=== PATIENT | male | born 1970 | race Caucasian/White ===

== ENCOUNTER 2017-03-30 17:30 | Emergency (ER) | payer OTHER ==
[~2017-03-30] VITALS: Ht 182.9 cm; Wt 120.0 kg
[~2017-03-30 17:30] MED LIST: ECOT81TA2 PO; FEXO60TA PO; MELO15TA2 PO
[2017-03-30 17:36] VITALS: BP 159/93; PULSE 79; RESP 15; TEMP 97.9; O2SAT 98
[2017-03-30] MEDS ORDERED: TETANUS/DIPHTHERIA TOXOID ADULT 0.5 ML VIAL IM ONE (17:45)
[2017-03-30] MEDS ORDERED: SULFAMETHOXAZOLE-TRIMETHOPRIM DS 800-160 MG TAB PO ONE (17:45)
[2017-03-30] MEDS ORDERED: cholesterol pill PO (17:52)
[2017-03-30] MEDS ORDERED: ASPI81CH CHEW (17:52)
--- NOTE | 2017-03-30 18:00 | PD ---
HPI Chief Complaint: Laceration/Skin Injury Time Seen by Provider: 17:40 Travel History International Travel<30 days: No Contact w/Intl Traveler<30days: No Traveled to known affect area: No History of Present Illness HPI 46-year-old male that presents to the ED for evaluation of laceration to his left second digit. Per patient he was putting shutters when he was using a drill bit to drill a hole he accidentally drill on his left second digit. Per patient he didn't went through and through but did went deep enough. He was able to get the piece of it out. He is able to move the finger fully. Per patient his pain is 7 out of 10. Denies any numbness, tilling, weakness. For the most part the laceration itself is puncture like a less than a quarter centimeter. Patient is concerned for internal injuries. No allergies to medication. He is unsure of his last tetanus booster. PFSH Past Medical History Arthritis: No Autoimmune Disease: No Blood Disorders: No Heart Rhythm Problems: Yes Cancer: No Cardiovascular Problems: Yes Diminished Hearing: No Endocrine: No Gastrointestinal Disorders: No Glaucoma: No Genitourinary: No Immune Disorder: No Musculoskeletal: Yes (chronic back pain) Neurologic: No Psychiatric: No Reproductive: No Respiratory: Yes (sleep apnea) Sleep Apnea: Yes Tetanus Vaccination: Unknown Past Surgical History AICD: No Cardiac Surgery: Yes (PACEMAKER) Eye Surgery: Yes (LASER SURGERY BILATERAL ) Joint Replacement: No Neurologic Surgery: Yes (LUMBAR LAMI 2006/SPINAL FUSION) Pacemaker: Yes (JUL 25 2013) Social History Alcohol Use: No Tobacco Use: No Substance Use: No Allergies-Medications (Allergen,Severity, Reaction): Coded Allergies: No Known Allergies (Verified , 03/30/17) Reported Meds & Prescriptions Reported Meds & Active Scripts Active Diclofenac Sodium DR (Diclofenac Sodium) 75 Mg Tabdr 75 Mg PO BID PRN Bactrim DS (Sulfamethoxazole-Trimethoprim) 800-160 Mg Tab 1 Tab PO BID 7 Days Reported [cholesterol pill] 1 Tab PO HS Aspirin 81 Mg Chew 81 Mg CHEW DAILY Review of Systems Except as stated in HPI: all other systems reviewed are Neg Physical Exam Narrative GENERAL: SKIN: Warm and dry. HEAD: Atraumatic. Normocephalic. EYES: Pupils equal and round. No scleral icterus. No injection or drainage. ENT: No nasal bleeding or discharge. Mucous membranes pink and moist. NECK: Trachea midline. No JVD. CARDIOVASCULAR: Regular rate and rhythm. RESPIRATORY: No accessory muscle use. Clear to auscultation. Breath sounds equal bilaterally. GASTROINTESTINAL: Abdomen soft, non-tender, nondistended. Hepatic and splenic margins not palpable. MUSCULOSKELETAL: Extremities without clubbing, cyanosis, or edema. No obvious deformities. Motion of all fingers of the left hand. Patient has a puncture wound to the right second digit of the left hand. On the medial aspect. About less than 0.25 cm in diameter with ragged edges. Very well approximated. He does appear to be somewhat deep and there is some signs of swelling. No obvious sign of tendon, vessel, nerve damage. Patient able to move the finger fully and there is no sensation of foreign body. Good capillary refill of the entire digit. NEUROLOGICAL: Awake and alert. No obvious cranial nerve deficits. Motor grossly within normal limits. Five out of 5 muscle strength in the arms and legs. Normal speech. PSYCHIATRIC: Appropriate mood and affect; insight and judgment normal. Data Data Last Documented VS Vital Signs Date Time Temp Pulse Resp B/P (MAP) Pulse Ox O2 Delivery O2 Flow Rate FiO2 03/30/17 17:36 97.9 79 15 159/93 (115) 98 Orders Orders Wound Care (03/30/17 17:42) Tetanus/Diphtheria Tox Adult (Tetanus/Di (03/30/17 17:45) Splint Or Brace Apply/Monitor (03/30/17 17:42) Sulfamet-Trimeth Ds 800-160 Mg (Bactrim (03/30/17 17:45) Finger ([id number]) (03/30/17 17:54) MDM Medical Decision Making Medical Screen Exam Complete: Yes Emergency Medical Condition: Yes Medical Record Reviewed: Yes Interpretation(s) xray of left finger negative for bony injury or foreign body Differential Diagnosis Puncture wound versus laceration versus finger injury Narrative Course 46-year-old male that presents to the ED for evaluation of injury to the left second digit. Patient was properly examined and was found to have signs and symptoms consistent appears to be a puncture wound. X-ray will be done to rule out any sign of bony injury although this appears to be as likely. Also to rule out foreign body. Patient was given tetanus booster. X-ray was negative for acute bony injury or foreign body. Patient was reassured. In regards to the laceration itself I recommend to let it heal by secondary intent. Patient agrees with this decision. Patient was told that he will likely have a scar but he should heal well. Patient will be given prophylactic antibiotics. Patient was given pain medication and given a splint as well as wound care. Patient is with plan. Follow with PCP. See ED worsening symptoms. Diagnosis Primary Impression: Puncture wound of finger of left hand Qualified Codes: S61.239A - Puncture wound without foreign body of unspecified finger without damage to nail, initial encounter Patient Instructions: General Instructions Additional Instructions: Wound care daily with soap and water. You can apply bandaid if needed. Neosporyn or OTC antibiotic ointment to area as needed twice a day for at least 2 weeks to help with scarring and prevent infection. Meoderma OTC for scarring if needed. Avoid sun exposure for 2 months as the sun could make scar darker and more noticeable. See ED if worst. Take med as prescribed. Keep splint for the next few days. IF better you can take it off in 3 days. Med/Other Pt SpecificInfo: Prescription(s) given Scripts Diclofenac Sodium DR (Diclofenac Sodium DR) 75 Mg Tabdr 75 MG PO BID Y for PAIN SCALE 1 TO 10, #20 TAB 0 Refills Prov: Randy Quick MD 03/30/17 Sulfamethoxazole-Trimethoprim (Bactrim DS) 800-160 Mg Tab 1 TAB PO BID for Infection for 7 Days, TAB 0 Refills Prov: Randy Quick MD 03/30/17 Disposition: 01 DISCHARGE HOME Condition: Stable Hu Godwin Mar 30, 2017 18:00
[2017-03-30] MEDS ORDERED: BACT800T5 PO (18:01)
[2017-03-30] MEDS ORDERED: DICL75TA PO (18:01)
--- NOTE | 2017-03-30 18:50 | RADRPT ---
EXAM DATE/TIME: 03/30/2017 17:53 [facility] COMPARISON: No previous studies available for comparison. INDICATIONS : Left hand, third digit pain post screw accident. MEDICAL HISTORY : None. SURGICAL HISTORY : None. ENCOUNTER: Initial ACUITY: 1 day PAIN SCORE: 7/10 LOCATION: Left upper extremity FINDINGS: Examination of the third digit of the left hand demonstrates laceration proximal third finger. No fra cture. No radiopaque foreign body. CONCLUSION: 1. Small laceration third finger. No acute bony abnormalities or radiopaque foreign body. Jose Ott MD on March 30, 2017 at 18:48 Board Certified Radiologist. This report was verified electronically.
== END 2017-03-30 18:54 | disposition home or self-care (01) ==
LOC: PHEFT 17:30
DX: S61.231A Puncture wound without foreign body of left index finger without damage to nail, initial encounter (principal); W29.8XXA Contact with other powered hand tools and household machinery, initial encounter; Y93.H9 Activity, other involving exterior property and land maintenance, building and construction; Y92.098 Other place in other non-institutional residence as the place of occurrence of the external cause; Z23 Encounter for immunization
CPT/HCPCS: 29130; 73140; 90471; 90714

== ENCOUNTER 2017-07-17 16:17 | Emergency (ER) | payer OTHER ==
[~2017-07-17 16:17] MED LIST changes: +ASPI-516 CHEW; +BACT800T5 PO; +DICL75TA PO; -ECOT81TA2 PO; -FEXO60TA PO; -MELO15TA2 PO; +cholesterol pill PO
[2017-07-17 16:19] VITALS: BP 180/97; PULSE 84; RESP 12; TEMP 99; O2SAT 95
[2017-07-17] MEDS ORDERED: SODIUM CHLOR 0.9% 1000 ML INJ 1,000 ML IV SCH (16:54)
[2017-07-17 17:00] VITALS: O2SAT 99
[2017-07-17] MEDS ORDERED: KETOROLAC TROMETHAMINE 30 MG/ML (IVP) VIAL IV PUSH ONE (17:00)
[2017-07-17] MEDS ORDERED: SODIUM CHLORIDE 0.9% FLUSH 10 ML FLUSH IV FLUSH PRN (17:00)
[2017-07-17] MEDS ORDERED: ONDANSETRON HCL 4 MG/2 ML VIAL IVP ONE (17:00)
[2017-07-17 17:48] LABS: BASOPHIL # 0.1 TH/MM3 (0-0.2); BASOPHIL % 0.7 % (0.0-2.0); EOSINOPHIL # 0.3 TH/MM3 (0-0.4); HEMATOCRIT 43.6 % (39.0-51.0); HEMOGLOBIN 14.7 GM/DL (13.0-17.0); LYMPH % 7.7 % (9.0-44.0); MEAN CELL VOLUME 90.4 FL (80.0-100.0); MEAN CORPUSCULAR HEMOGLOBIN 30.4 PG (27.0-34.0); MEAN CORPUSCULAR HGB CONC 33.7 % (32.0-36.0); MEAN PLATELET VOLUME 8.7 FL (7.0-11.0); MONO % 9.3 % (0.0-8.0); MONOCYTE # 1.2 TH/MM3 (0-0.9); NEUT % 80.3 % (16.0-70.0); PLATELET COUNT 230 TH/MM3 (150-450); RED BLOOD COUNT 4.82 MIL/MM3 (4.50-5.90); RED CELL DISTRIBUTION WIDTH 13.5 % (11.6-17.2); WHITE BLOOD COUNT 12.4 TH/MM3 (4.0-11.0)
[2017-07-17] MEDS ORDERED: LIPI20TA PO (17:50)
[2017-07-17 17:57] LABS: INTERNATIONAL NORMALIZED RATIO 1.1 RATIO; PROTHROMBIN TIME - PATIENT 11.4 SEC (9.8-11.6)
--- NOTE | 2017-07-17 18:06 | RADRPT ---
EXAM DATE/TIME: 07/17/2017 17:51 [facility] COMPARISON: No previous studies available for comparison. INDICATIONS : Right flank pain. ORAL CONTRAST: No oral contrast ingested. RADIATION DOSE: 13.42 CTDIvol (mGy) MEDICAL HISTORY : Cardiovascular disease. SURGICAL HISTORY : Pacemaker. ENCOUNTER: Initial ACUITY: 1 day PAIN SCALE: 5/10 LOCATION: Right flank TECHNIQUE: Volumetric scanning of the abdomen and pelvis was performed. Using automated exposure control and ad justment of the mA and/or kV according to patient size, radiation dose was kept as low as reasonably achievable to obtain optimal diagnostic quality images. DICOM format image data is available electro nically for review and comparison. FINDINGS: LOWER LUNGS: The visualized lower lungs are clear. LIVER: Homogeneous density without lesion. There is no dilation of the biliary tree. Numerous tiny gravel-l azra stones are seen in the gallbladder. No duct stone or ductal dilatation demonstrated.. SPLEEN: Normal size without lesion. PANCREAS: Within normal limits. KIDNEYS: There is a 3 x 4 mm calculus in the proximal right ureter just below the UPJ. There is associated mil d hydronephrosis. No renal or ureteral calculus on the left. ADRENAL GLANDS: Within normal limits. VASCULAR: There is no aortic aneurysm. BOWEL/MESENTERY: The stomach, small bowel, and colon demonstrate no acute abnormality. There is no free intraperitone al air or fluid. The appendix is well-visualized and normal. ABDOMINAL WALL: Within normal limits. RETROPERITONEUM: There is no lymphadenopathy. BLADDER: There is an approximately 4 cm diverticulum left posterolateral. Neck is estimated at approximately 1 .9 cm across. REPRODUCTIVE: Within normal limits. INGUINAL: There is no lymphadenopathy or hernia. MUSCULOSKELETAL: Within normal limits for patient age. CONCLUSION: 1. 3 x 4 mm stone in the proximal right ureter causing mild obstructive uropathy. 2. Incidentally seen cholelithiasis and urinary bladder diverticulum. Cy Ybarra MD on July 17, 2017 at 18:02 Board Certified Radiologist. This report was verified electronically.
[2017-07-17 18:10] LABS: ALKALINE PHOSPHATASE 112 U/L (45-117); TOTAL BILIRUBIN ADULT 1.5 MG/DL (0.2-1.0); TOTAL PROTEIN 8.4 GM/DL (6.4-8.2)
[2017-07-17 18:14] LABS: ALBUMIN 4.3 GM/DL (3.4-5.0); ALT (GPT) 37 U/L (12-78); AST (GOT) 30 U/L (15-37); BICARBONATE 30.3 MEQ/L (21.0-32.0); BLOOD UREA NITROGEN 19 MG/DL (7-18); CALCIUM 9.3 MG/DL (8.5-10.1); CHLORIDE 104 MEQ/L (98-107); CREATININE 1.39 MG/DL (0.60-1.30); GLOMERULAR FILTRATION RATE 55 ML/MIN (>89); GLUCOSE,RANDOM 89 MG/DL (74-106); LIPASE 395 U/L (73-393); SODIUM (NA) 139 MEQ/L (136-145)
--- NOTE | 2017-07-17 19:32 | RADRPT ---
EXAM DATE/TIME: 07/17/2017 18:56 [facility] COMPARISON: CT ABDOMEN & PELVIS W/O CONTRAST, July 17, 2017, 17:51. INDICATIONS : Right upper quadrant pain. MEDICAL HISTORY : Sleep apnea. Irregular heartbeat. Measles. SURGICAL HISTORY : Pacemaker. Fusion, lumbar. Bilateral lasik. Lumbar laminectomy. Left thumb surgery. ENCOUNTER: Initial ACUITY: 1 day PAIN SCORE: 4/10 LOCATION: Right upper quadrant MEASUREMENTS: LIVER: 16.9 cm length COMMON DUCT: 9 mm RIGHT KIDNEY: 11.7 x 6.1 x 5.6 cm FINDINGS: LIVER: Normal echotexture without focal lesion or ductal dilatation. COMMON DUCT: No intraluminal mass or stone visualized. GALLBLADDER: 17 mm stone. No wall thickening or pericholecystic fluid. PANCREAS: The visualized portions are within normal limits. RIGHT KIDNEY: Mild hydronephrosis. CONCLUSION: 1. Gallstone without evidence of cholecystitis or acute biliary obstruction. 2. Mild prominence of the common bile duct. No ductal stone demonstrated. 3. Mild hydronephrosis of the right kidney. Comparison CT shows a right ureteral calculus. Cy Ybarra MD on July 17, 2017 at 19:28 Board Certified Radiologist. This report was verified electronically.
[2017-07-17] MEDS ORDERED: TAMS5CAP PO (19:58)
[2017-07-17] MEDS ORDERED: NORC5TAB PO (19:58)
[2017-07-17] MEDS ORDERED: ZOFR4TAB3 SL (19:58)
--- NOTE | 2017-07-17 19:58 | PD ---
HPI Chief Complaint: Abdominal Pain Time Seen by Provider: 16:42 Travel History International Travel<30 days: No Contact w/Intl Traveler<30days: No Traveled to known affect area: No History of Present Illness HPI Patient is a 46-year-old male who comes in complaining of pain to his abdomen going to his back. He says it started after lunch today when he felt a sharp pain to the middle of his abdomen. He said that he then felt a sharp pain in his right flank that wraps around to the front. He says his been nauseous, but has not had vomiting. He denies fever or chills. He denies any urinary issues. He says this is never happened before. He has not taken anything for the pain. He says he is having normal bowel movements. PFSH Past Medical History Arthritis: No Autoimmune Disease: No Blood Disorders: No Heart Rhythm Problems: Yes Cancer: No Cardiovascular Problems: Yes (PACEMAKER) Diminished Hearing: No Endocrine: No Gastrointestinal Disorders: No Glaucoma: No Genitourinary: No Immune Disorder: No Musculoskeletal: Yes (chronic back pain) Neurologic: No Psychiatric: No Reproductive: No Respiratory: Yes (sleep apnea) Sleep Apnea: Yes Past Surgical History AICD: No Cardiac Surgery: Yes (PACEMAKER) Eye Surgery: Yes (LASER SURGERY BILATERAL ) Insulin Pump: No Joint Replacement: No Neurologic Surgery: Yes (LUMBAR LAMI 2006/SPINAL FUSION) Pacemaker: Yes (JUL 25 2013) Social History Alcohol Use: No Tobacco Use: No Substance Use: No Allergies-Medications (Allergen,Severity, Reaction): Coded Allergies: No Known Allergies (Verified Adverse Reaction, Unknown, 07/17/17) Reported Meds & Prescriptions Reported Meds & Active Scripts Active Zofran Odt (Ondansetron Odt) 4 Mg Tab 4 Mg SL Q6HR PRN [place] (Hydrocodone-Acetaminophen) 5 Mg-325 Mg Tab 1 Tab PO Q6H PRN Flomax (Tamsulosin HCl) 0.4 Mg Cap 0.4 Mg PO HS Reported Lipitor (Atorvastatin Calcium) 20 Mg Tab 20 Mg PO HS [cholesterol pill] 1 Tab PO HS Aspirin 81 Mg Chew 81 Mg CHEW DAILY Review of Systems Except as stated in HPI: all other systems reviewed are Neg General / Constitutional: No: Fever, Chills HENT: No: Headaches, Lightheadedness Cardiovascular: No: Chest Pain or Discomfort Respiratory: No: Shortness of Breath Gastrointestinal: Positive: Nausea, Abdominal Pain, No: Vomiting Genitourinary: Positive: Flank Pain, No: Dysuria Musculoskeletal: No: Myalgias, Edema Skin: No Rash, No Change in Pigmentation Neurologic: No: Weakness, Dizziness Physical Exam Narrative GENERAL: Awake and alert, in no acute distress. SKIN: Focused skin assessment warm/dry. HEAD: Atraumatic. Normocephalic. EYES: Pupils equal and round. No scleral icterus. ENT: Mucous membranes pink and moist. NECK: Trachea midline. No JVD. CARDIOVASCULAR: Regular rate and rhythm. No murmur appreciated. RESPIRATORY: No accessory muscle use. Clear to auscultation. Breath sounds equal bilaterally. GASTROINTESTINAL: Abdomen soft, nondistended. Mild tenderness to palpation of the epigastric area as well as the right CVA MUSCULOSKELETAL: No obvious deformities. No clubbing. No cyanosis. No edema. NEUROLOGICAL: Awake and alert. No obvious cranial nerve deficits. Motor grossly within normal limits. Normal speech. PSYCHIATRIC: Appropriate mood and affect; insight and judgment normal. Data Data Last Documented VS Vital Signs Date Time Temp Pulse Resp B/P (MAP) Pulse Ox O2 Delivery O2 Flow Rate FiO2 07/17/17 21:25 07/17/17 17:00 99 Room Air 07/17/17 16:19 99.0 84 12 Orders Orders Complete Blood Count With Diff (07/17/17 16:54) Comprehensive Metabolic Panel (07/17/17 16:54) Lipase (07/17/17 16:54) Prothrombin Time / Inr (Pt) (07/17/17 16:54) Act Partial Throm Time (Ptt) (07/17/17 16:54) Urinalysis - C+S If Indicated (07/17/17 16:54) Ct Abd/Pel W/O Iv Contrast (07/17/17 16:54) Iv Access Insert/Monitor (07/17/17 16:54) Ecg Monitoring (07/17/17 16:54) Oximetry (07/17/17 16:54) Ondansetron Inj (Zofran Inj) (07/17/17 17:00) Sodium Chlor 0.9% 1000 Ml Inj (Ns 1000 M (07/17/17 16:54) Sodium Chloride 0.9% Flush (Ns Flush) (07/17/17 17:00) Ketorolac Inj (Toradol Inj) (07/17/17 17:00) Us Abdomen Gallbladder (07/17/17 ) Electrocardiogram (07/17/17 17:40) Ed Discharge Order (07/17/17 21:00) Labs Laboratory Tests Test 07/17/17 17:15 07/17/17 19:45 White Blood Count 12.4 TH/MM3 Red Blood Count 4.82 MIL/MM3 Hemoglobin 14.7 GM/DL Hematocrit 43.6 % Mean Corpuscular Volume 90.4 FL Mean Corpuscular Hemoglobin 30.4 PG Mean Corpuscular Hemoglobin Concent 33.7 % Red Cell Distribution Width 13.5 % Platelet Count 230 TH/MM3 Mean Platelet Volume 8.7 FL Neutrophils (%) (Auto) 80.3 % Lymphocytes (%) (Auto) 7.7 % Monocytes (%) (Auto) 9.3 % Eosinophils (%) (Auto) 2.0 % Basophils (%) (Auto) 0.7 % Neutrophils # (Auto) 10.0 TH/MM3 Lymphocytes # (Auto) 1.0 TH/MM3 Monocytes # (Auto) 1.2 TH/MM3 Eosinophils # (Auto) 0.3 TH/MM3 Basophils # (Auto) 0.1 TH/MM3 CBC Comment DIFF FINAL Differential Comment Prothrombin Time 11.4 SEC Prothromb Time International Ratio 1.1 RATIO Activated Partial Thromboplast Time 27.6 SEC Blood Urea Nitrogen 19 MG/DL Creatinine 1.39 MG/DL Random Glucose 89 MG/DL Total Protein 8.4 GM/DL Albumin 4.3 GM/DL Calcium Level 9.3 MG/DL Alkaline Phosphatase 112 U/L Aspartate Amino Transf (AST/SGOT) 30 U/L Alanine Aminotransferase (ALT/SGPT) 37 U/L Total Bilirubin 1.5 MG/DL Sodium Level 139 MEQ/L Potassium Level 3.8 MEQ/L Chloride Level 104 MEQ/L Carbon Dioxide Level 30.3 MEQ/L Anion Gap 5 MEQ/L Estimat Glomerular Filtration Rate 55 ML/MIN Lipase 395 U/L Urine Color YELLOW Urine Turbidity CLEAR Urine pH 6.0 Urine Specific Welda 1.016 Urine Protein NEG mg/dL Urine Glucose (UA) NEG mg/dL Urine Ketones NEG mg/dL Urine Occult Blood MOD Urine Nitrite NEG Urine Bilirubin NEG Urine Urobilinogen LESS THAN 2.0 MG/DL Urine Leukocyte Esterase NEG Urine RBC 47 /hpf Urine WBC 3 /hpf Urine Squamous Epithelial Cells <1 /hpf Urine Bacteria RARE /hpf Urine Hyaline Casts 1 /lpf Urine Mucus FEW /lpf Microscopic Urinalysis Comment CULT NOT INDICATED MDM Medical Decision Making Medical Screen Exam Complete: Yes Emergency Medical Condition: Yes Differential Diagnosis UTI versus pyelonephritis versus renal stone versus cholecystitis versus pancreatitis Narrative Course Patient is a 46-year-old male who comes in complaining of abdominal pain and flank pain. Exam shows right CVA tenderness. IV established, labs sent. Labs show a lipase of 395, just barely elevated total bilirubin of 1.5. Creatinine is 1.39. CT abdomen and pelvis performed shows a 4 mm obstructing ureteral stone on the right. Mild hydronephrosis. There is also possible gallstone. Ultrasound performed shows no evidence of cholecystitis or bile duct blockage. Last 24 hours Impressions Abdomen/Pelvis CT 07/17/17 1654 Signed Impressions: Service Date/Time: Monday, July 17, 2017 17:51 - CONCLUSION: 1. 3 x 4 mm stone in the proximal right ureter causing mild obstructive uropathy. 2. Incidentally seen cholelithiasis and urinary bladder diverticulum. Cy Ybarra MD Gall Bladder Ultrasound 07/17/17 0000 Signed Impressions: Service Date/Time: Monday, July 17, 2017 18:56 - CONCLUSION: 1. Gallstone without evidence of cholecystitis or acute biliary obstruction. 2. Mild prominence of the common bile duct. No ductal stone demonstrated. 3. Mild hydronephrosis of the right kidney. Comparison CT shows a right ureteral calculus. Cy Ybarra MD Patient was given IV fluids as well as Toradol and Zofran. He reports resolution of his symptoms. He'll be discharged with prescriptions for pain medicine, Flomax. He is advised to follow-up with urology. Advised to return to the ED as needed for any worsening symptoms. Diagnosis Primary Impression: Renal stone Referrals: Heath Mejia DO call for appointment Patient Instructions: General Instructions, Kidney Stones (ED) Additional Instructions: Drink plenty of fluids. Take ibuprofen for pain, or the [place] for severe pain. Take Zofran as needed for nausea. Take the Flomax for the next 7 days. Follow up with urology. Return to the ED as needed for any worsening symptoms. Scripts Ondansetron Odt (Zofran Odt) 4 Mg Tab 4 MG SL Q6HR Y for Nausea/Vomiting, #12 TAB 0 Refills Prov: Rosamaria Bose MD 07/17/17 Hydrocodone-Acetaminophen ([place]) 5 Mg-325 Mg Tab 1 TAB PO Q6H Y for PAIN, #15 TAB 0 Refills Prov: Rosamaria Bose MD 07/17/17 Tamsulosin (Flomax) 0.4 Mg Cap 0.4 MG PO HS for Manage Prostate Problems, #7 CAP 0 Refills Prov: Rosamaria Bose MD 07/17/17 Disposition: 01 DISCHARGE HOME Condition: Stable Rosamaria Bose MD Jul 17, 2017 19:58
[2017-07-17 20:33] LABS: BACTERIA, URINE RARE /hpf; BILIRUBIN, URINE NEG (NEG); BLOOD, URINE MOD (NEG); GLUCOSE,URINE NEG (NEG); HYALINE CAST, URINE 1 /lpf (RARE); KETONE, URINE NEG (NEG); MUCUS URINE FEW /lpf (OCC); NITRITE,URINE NEG (NEG); SQUAMOUS EPITHELIAL CELL URINE <1 /hpf (0-5); URINE COLOR YELLOW (YELLW/STRAW); URINE LEUKOCYTE ESTERASE NEG (NEG)
--- NOTE | 2017-07-18 14:59 | EKG ---
Date Performed: 07/17/2017 Time Performed: 17:40:26 PTAGE: 46 years EKG: ELECTRONIC VENTRICULAR PACEMAKER ABNORMAL RHYTHM ECG PREVIOUS TRACING : 03/16/2015 19.46 DOCTOR: Sam Millard Interpretating Date/Time 07/18/2017 14:58:51
== END 2017-07-17 21:25 | disposition home or self-care (01) ==
LOC: NEPC 16:17
DX: N13.2 Hydronephrosis with renal and ureteral calculous obstruction (principal); R94.31 Abnormal electrocardiogram [ECG] [EKG]
CPT/HCPCS: 74176; 76705; 80053; 81001; 83690; 85025; 85610; 85730; 93005; 96374; 96375; 99285; J1885; J2405; J7030

== ENCOUNTER 2017-08-22 12:10 | Emergency (ER) | payer OTHER ==
[~2017-08-22] VITALS: Ht 182.9 cm; Wt 113.6 kg
[~2017-08-22 12:10] MED LIST changes: -BACT800T5 PO; -DICL75TA PO; +LIPI20TA PO; +NORC5TAB PO; +TAMS5CAP PO; +ZOFR4TAB3 SL
[2017-08-22 12:11] VITALS: BP 173/90; PULSE 67; RESP 16; TEMP 98.8; O2SAT 100
[2017-08-22] MEDS ORDERED: ONDANSETRON ODT 4 MG TAB PO ONE (12:30)
[2017-08-22 13:24] LABS: BASOPHIL # 0.1 TH/MM3 (0-0.2); BASOPHIL % 1.1 % (0.0-2.0); EOSINOPHIL # 0.3 TH/MM3 (0-0.4); EOSINOPHIL % 2.2 % (0.0-4.0); HEMATOCRIT 44.4 % (39.0-51.0); HEMOGLOBIN 15.1 GM/DL (13.0-17.0); LYMPH % 8.7 % (9.0-44.0); LYMPHOCYTE # 1.2 TH/MM3 (1.0-4.8); MEAN CELL VOLUME 89.5 FL (80.0-100.0); MEAN CORPUSCULAR HEMOGLOBIN 30.3 PG (27.0-34.0); MEAN CORPUSCULAR HGB CONC 33.9 % (32.0-36.0); MEAN PLATELET VOLUME 9.1 FL (7.0-11.0); MONO % 7.6 % (0.0-8.0); NEUT % 80.4 % (16.0-70.0); PLATELET COUNT 270 TH/MM3 (150-450); RED BLOOD COUNT 4.96 MIL/MM3 (4.50-5.90); RED CELL DISTRIBUTION WIDTH 13.5 % (11.6-17.2); WHITE BLOOD COUNT 13.7 TH/MM3 (4.0-11.0)
[2017-08-22 13:32] LABS: BILIRUBIN, URINE NEG (NEG); BLOOD, URINE MOD (NEG); GLUCOSE,URINE NEG (NEG); KETONE, URINE NEG (NEG); MUCUS URINE FEW /lpf (OCC); NITRITE,URINE NEG (NEG); SQUAMOUS EPITHELIAL CELL URINE <1 /hpf (0-5); URINE COLOR YELLOW (YELLW/STRAW); URINE LEUKOCYTE ESTERASE NEG (NEG)
--- NOTE | 2017-08-22 13:40 | RADRPT ---
EXAM DATE/TIME: 08/22/2017 13:17 [facility] COMPARISON: CT ABDOMEN & PELVIS W/O CONTRAST, July 17, 2017, 17:51. INDICATIONS : Right flank pain, nausea, vomiting ORAL CONTRAST: No oral contrast ingested. RADIATION DOSE: 8.48 CTDIvol (mGy) MEDICAL HISTORY : Cardiovascular disease. SURGICAL HISTORY : Cholecystectomy. Pacemaker. ENCOUNTER: Initial ACUITY: 1 day PAIN SCALE: 10/10 LOCATION: Right flank TECHNIQUE: Volumetric scanning of the abdomen and pelvis was performed. Using automated exposure control and ad justment of the mA and/or kV according to patient size, radiation dose was kept as low as reasonably achievable to obtain optimal diagnostic quality images. DICOM format image data is available electro nically for review and comparison. FINDINGS: LOWER LUNGS: The visualized lower lungs are clear. LIVER: Homogeneous density without lesion. There is no dilation of the biliary tree. Cholecystectomy. SPLEEN: Normal size without lesion. PANCREAS: Within normal limits. KIDNEYS: Normal in size and shape. There is no mass, stone, or hydronephrosis on the left. Mild hydronephrosi s and hydroureter leading to a distal right ureteral calculus measuring 4-5 mm along the inferior SI joint. ADRENAL GLANDS: Within normal limits. VASCULAR: There is no aortic aneurysm. BOWEL/MESENTERY: The stomach, small bowel, and colon demonstrate no acute abnormality. There is no free intraperitone al air or fluid. ABDOMINAL WALL: Within normal limits. RETROPERITONEUM: There is scattered small retroperitoneal lymphadenopathy. BLADDER: No wall thickening or mass. REPRODUCTIVE: Left sided bladder diverticulum appears unchanged. INGUINAL: There is no lymphadenopathy or hernia. MUSCULOSKELETAL: Fusion lower lumbar spine. CONCLUSION: 1. Mild obstructive uropathy on the right secondary to distal ureteral calculus measuring 4-5 mm. 2. Bladder diverticulum. 3. Cholecystectomy. Miles Burleson MD on August 22, 2017 at 13:35 Board Certified Radiologist. This report was verified electronically.
[2017-08-22 13:44] LABS: ALBUMIN 4.6 GM/DL (3.4-5.0); ALT (GPT) 34 U/L (12-78); AST (GOT) 26 U/L (15-37); BLOOD UREA NITROGEN 17 MG/DL (7-18); CALCIUM 9.8 MG/DL (8.5-10.1); CHLORIDE 101 MEQ/L (98-107); CREATININE 1.46 MG/DL (0.60-1.30); GLOMERULAR FILTRATION RATE 52 ML/MIN (>89); GLUCOSE,RANDOM 92 MG/DL (74-106); SODIUM (NA) 137 MEQ/L (136-145)
[2017-08-22 13:47] LABS: ALKALINE PHOSPHATASE 129 U/L (45-117); TOTAL BILIRUBIN ADULT 1.8 MG/DL (0.2-1.0); TOTAL PROTEIN 8.6 GM/DL (6.4-8.2)
[2017-08-22] MEDS ORDERED: SODIUM CHLOR 0.9% 1000 ML INJ 1,000 ML IV SCH (14:48)
--- NOTE | 2017-08-22 14:54 | PD ---
HPI Chief Complaint: Flank/Kidney Pain Time Seen by Provider: 14:08 Travel History International Travel<30 days: No Contact w/Intl Traveler<30days: No Traveled to known affect area: No History of Present Illness HPI Patient is a 46 yo man with a chief complaint of severe right sided flank pain. He said the pain started out of no where this morning around 9:30am when he was at work. He said at first it felt like a cramp and then the pain progressed and he was no longer able to move or do anything. It is a sharp pain. He has never felt this pain before. He has also been vomiting which he thinks is due to the pain. He is 1 month post-op cholecystectomy and has felt fine since his surgery. He was informed at the time of his operation that he had a kidney stone but that he would probably pass it. He tried to follow up with a urologist but he never had an appointment scheduled. He has a pacemaker in place. He takes blood pressure and cholesterol medication at home. No other abdominal surgeries. Denies tobacco and alcohol use. PFSH Past Medical History Arthritis: No Autoimmune Disease: No Blood Disorders: No Heart Rhythm Problems: Yes Cancer: No Cardiovascular Problems: Yes (PACEMAKER) Diminished Hearing: No Endocrine: No Gastrointestinal Disorders: No Glaucoma: No Genitourinary: No Immune Disorder: No Musculoskeletal: Yes (chronic back pain) Neurologic: No Psychiatric: No Reproductive: No Respiratory: Yes (sleep apnea) Sleep Apnea: Yes Past Surgical History AICD: No Cardiac Surgery: Yes (PACEMAKER) Eye Surgery: Yes (LASER SURGERY BILATERAL ) Insulin Pump: No Joint Replacement: No Neurologic Surgery: Yes (LUMBAR LAMI 2006/SPINAL FUSION) Pacemaker: Yes (JUL 25 2013) Social History Alcohol Use: No Tobacco Use: No Substance Use: No Allergies-Medications (Allergen,Severity, Reaction): Coded Allergies: No Known Allergies (Verified Adverse Reaction, Unknown, 07/17/17) Reported Meds & Prescriptions Reported Meds & Active Scripts Active Zofran Odt (Ondansetron Odt) 4 Mg Tab 4 Mg SL Q6HR PRN [place] (Hydrocodone-Acetaminophen) 5 Mg-325 Mg Tab 1 Tab PO Q6H PRN Flomax (Tamsulosin HCl) 0.4 Mg Cap 0.4 Mg PO HS Reported Lipitor (Atorvastatin Calcium) 20 Mg Tab 20 Mg PO HS [cholesterol pill] 1 Tab PO HS Aspirin 81 Mg Chew 81 Mg CHEW DAILY Review of Systems Except as stated in HPI: all other systems reviewed are Neg Physical Exam Narrative GENERAL: well appearing male in no acute distress, appears quite comfortable. SKIN: Warm and dry. HEAD: Atraumatic. Normocephalic. EYES: Pupils equal and round. No scleral icterus. No injection or drainage. ENT: No nasal bleeding or discharge. Mucous membranes pink and moist. NECK: Trachea midline. No JVD. CARDIOVASCULAR: Regular rate and rhythm. RESPIRATORY: No accessory muscle use. Clear to auscultation. Breath sounds equal bilaterally. GASTROINTESTINAL: Abdomen soft, non-tender, nondistended. Hepatic and splenic margins not palpable. Positive right sided CVA tenderness. MUSCULOSKELETAL: Extremities without clubbing, cyanosis, or edema. No obvious deformities. NEUROLOGICAL: Awake and alert. No obvious cranial nerve deficits. Motor grossly within normal limits. Five out of 5 muscle strength in the arms and legs. Normal speech. PSYCHIATRIC: Appropriate mood and affect; insight and judgment normal. Data Data Last Documented VS Vital Signs Date Time Temp Pulse Resp B/P (MAP) Pulse Ox O2 Delivery O2 Flow Rate FiO2 08/22/17 16:54 08/22/17 12:11 98.8 67 16 100 Room Air Orders Orders Complete Blood Count With Diff (08/22/17 12:22) Comprehensive Metabolic Panel (08/22/17 12:22) Urinalysis - C+S If Indicated (08/22/17 12:22) Ct Abd/Pel W/O Iv Contrast (08/22/17 12:22) Ondansetron Odt (Zofran Odt) (08/22/17 12:30) Iv Access Insert/Monitor (08/22/17 14:48) Oximetry (08/22/17 14:48) Ondansetron Inj (Zofran Inj) (08/22/17 15:00) Sodium Chlor 0.9% 1000 Ml Inj (Ns 1000 M (08/22/17 14:48) Sodium Chloride 0.9% Flush (Ns Flush) (08/22/17 15:00) Ketorolac Inj (Toradol Inj) (08/22/17 15:00) Ed Discharge Order (08/22/17 16:30) Labs Laboratory Tests Test 08/22/17 12:35 08/22/17 13:10 White Blood Count 13.7 TH/MM3 Red Blood Count 4.96 MIL/MM3 Hemoglobin 15.1 GM/DL Hematocrit 44.4 % Mean Corpuscular Volume 89.5 FL Mean Corpuscular Hemoglobin 30.3 PG Mean Corpuscular Hemoglobin Concent 33.9 % Red Cell Distribution Width 13.5 % Platelet Count 270 TH/MM3 Mean Platelet Volume 9.1 FL Neutrophils (%) (Auto) 80.4 % Lymphocytes (%) (Auto) 8.7 % Monocytes (%) (Auto) 7.6 % Eosinophils (%) (Auto) 2.2 % Basophils (%) (Auto) 1.1 % Neutrophils # (Auto) 11.0 TH/MM3 Lymphocytes # (Auto) 1.2 TH/MM3 Monocytes # (Auto) 1.0 TH/MM3 Eosinophils # (Auto) 0.3 TH/MM3 Basophils # (Auto) 0.1 TH/MM3 CBC Comment DIFF FINAL Differential Comment Blood Urea Nitrogen 17 MG/DL Creatinine 1.46 MG/DL Random Glucose 92 MG/DL Total Protein 8.6 GM/DL Albumin 4.6 GM/DL Calcium Level 9.8 MG/DL Alkaline Phosphatase 129 U/L Aspartate Amino Transf (AST/SGOT) 26 U/L Alanine Aminotransferase (ALT/SGPT) 34 U/L Total Bilirubin 1.8 MG/DL Sodium Level 137 MEQ/L Potassium Level 3.8 MEQ/L Chloride Level 101 MEQ/L Carbon Dioxide Level 26.0 MEQ/L Anion Gap 10 MEQ/L Estimat Glomerular Filtration Rate 52 ML/MIN Urine Color YELLOW Urine Turbidity CLEAR Urine pH 5.0 Urine Specific [place] 1.014 Urine Protein NEG mg/dL Urine Glucose (UA) NEG mg/dL Urine Ketones NEG mg/dL Urine Occult Blood MOD Urine Nitrite NEG Urine Bilirubin NEG Urine Urobilinogen LESS THAN 2.0 MG/DL Urine Leukocyte Esterase NEG Urine RBC /hpf Urine WBC 1 /hpf Urine Squamous Epithelial Cells <1 /hpf Urine Mucus FEW /lpf Microscopic Urinalysis Comment CULT NOT INDICATED MDM Medical Decision Making Medical Screen Exam Complete: Yes Emergency Medical Condition: Yes Differential Diagnosis Nephrolithiasis, hydronephrosis, UTI. Narrative Course Patient roomed emergency department, symptoms highly consistent with a right kidney stone, CT scan confirms. Patient had a CT scan at the end of June showing a kidney stone of similar size in the proximal ureter, he was discharged with instructions for Flomax and urology follow-up unfortunately has not been able to see a urologist because they did not call him back to schedule an appointment. He appears quite comfortable in no distress, Toradol has lessened his plain significantly. I discussed with him that he needs to follow- up with urologist this time, his creatinine is similar to what it was in June. Is unclear if this stone is the same stone as was present then or if this is a new stone, the patient states that his called and she had spoken to Dr. Sergio Oleary his surgeon who did his cholecystectomy at the end of June. He would like to be consult on the patient now. I called Dr. Oleary and he states he actually received no such protocol is possible the patient's had talked to the office staff, discussed the patient briefly with him and he states there is no indication for him to be involved in this case this time and I agree. At this time the patient is stable for discharge, discussed need for close follow-up with the urologist and discussed return to ED criteria. Diagnosis Primary Impression: Kidney stone Referrals: Saul Sanchez MD Med/Other Pt SpecificInfo: Prescription(s) given Scripts Ondansetron Odt (Zofran Odt) 4 Mg Tab 4 MG SL Q6HR Y for Nausea/Vomiting, #12 TAB 0 Refills Prov: Forest Ribeiro MD 08/22/17 Hydrocodone-Acetaminophen ([place]) 5 Mg-325 Mg Tab 1 TAB PO Q6H Y for PAIN, #15 TAB 0 Refills Prov: Forest Ribeiro MD 08/22/17 Tamsulosin (Flomax) 0.4 Mg Cap 0.4 MG PO HS for Manage Prostate Problems, #7 CAP 0 Refills Prov: Forest Ribeiro MD 08/22/17 Disposition: 01 DISCHARGE HOME Condition: Stable Forest Riberio MD Aug 22, 2017 14:54
[2017-08-22] MEDS ORDERED: ONDANSETRON HCL 4 MG/2 ML VIAL IVP ONE (15:00)
[2017-08-22] MEDS ORDERED: KETOROLAC TROMETHAMINE 30 MG/ML (IVP) VIAL IVP ONE (15:00)
[2017-08-22] MEDS ORDERED: SODIUM CHLORIDE 0.9% FLUSH 10 ML FLUSH IV FLUSH PRN (15:00)
[2017-08-22] MEDS ORDERED: NORC5TAB PO (16:26)
[2017-08-22] MEDS ORDERED: ZOFR4TAB3 SL (16:26)
[2017-08-22] MEDS ORDERED: TAMS5CAP PO (16:26)
== END 2017-08-22 16:55 | disposition home or self-care (01) ==
LOC: NEPD 12:10
DX: N13.2 Hydronephrosis with renal and ureteral calculous obstruction (principal); N32.3 Diverticulum of bladder; Z90.49 Acquired absence of other specified parts of digestive tract
CPT/HCPCS: 74176; 80053; 81001; 85025; 96374; 96375; 99285; J1885; J2405; J7030